=== PATIENT | female | born 1990 | race Caucasian/White ===

== ENCOUNTER 2017-11-19 03:04 | Emergency (ER) | payer OTHER ==
[~2017-11-19] VITALS: Ht 160 cm; Wt 117.9 kg
[2017-11-19] MEDS ORDERED: Vistaril25 MG PO (03:34)
[2017-11-19] MEDS ORDERED: PRED20 PO (18:56)
[2017-11-19] MEDS ORDERED: Pepcid20 MG PO (18:56)
== END 2017-11-19 03:48 | disposition home or self-care (01) ==
LOC: ER 03:04
DX: L23.9 Allergic contact dermatitis, unspecified cause (principal)
CPT/HCPCS: 99283

== ENCOUNTER 2017-11-19 17:44 | Emergency (ER) | payer OTHER ==
[~2017-11-19] VITALS: Ht 160 cm; Wt 117.9 kg
[~2017-11-19 17:44] MED LIST: Vistaril25 MG PO
[2017-11-19] MEDS ORDERED: PRED20 PO (18:56)
[2017-11-19] MEDS ORDERED: Pepcid20 MG PO (18:56)
== END 2017-11-19 19:06 | disposition home or self-care (01) ==
LOC: ER 17:44
DX: L50.9 Urticaria, unspecified (principal)
CPT/HCPCS: 99283

== ENCOUNTER → 2019-07-25 | Outpatient (CLI) | payer OTHER ==
[~2019-07-25] MED LIST changes: +PRED20 PO; +Pepcid20 MG PO
[2019-07-27 15:10] LABS: HPV 16 Negative (Negative); HPV 18 Negative (Negative); HPV OTHER HR TYPES Negative (Negative)
== END ==
LOC: LAB 18:18 → LAB SHORT 18:18
PROVIDERS: Physician Assistant
DX: Z01.419 Encounter for gynecological examination (general) (routine) without abnormal findings (principal)
CPT/HCPCS: 87624; G0145

== ENCOUNTER 2020-12-03 01:13 | Emergency (ER) | payer OTHER ==
[~2020-12-03] VITALS: Ht 160 cm; Wt 120.2 kg
[2020-12-03] MEDS ORDERED: ENSKYCE 28 TAB1 EACH (02:02)
== END 2020-12-03 06:23 | disposition home or self-care (01) ==
LOC: ER 01:13
DX: R51.9 Headache, unspecified (principal); R11.2 Nausea with vomiting, unspecified; Z79.899 Other long term (current) drug therapy
CPT/HCPCS: 81025; 96372; 99283-25; J1790; J1885

== ENCOUNTER 2021-09-04 12:50 | Emergency (ER) | payer OTHER ==
[~2021-09-04] VITALS: Ht 157.5 cm; Wt 115.7 kg
[~2021-09-04 12:50] MED LIST changes: +ENSKYCE 28 TAB1 EACH
== END 2021-09-04 13:51 | disposition home or self-care (01) ==
LOC: ER 12:50
DX: S50.311A Abrasion of right elbow, initial encounter (principal); V19.9XXA Pedal cyclist (driver) (passenger) injured in unspecified traffic accident, initial encounter; Z79.899 Other long term (current) drug therapy
CPT/HCPCS: 73090; 99283-25

== ENCOUNTER 2024-06-24 14:10 | Emergency (ER) | payer OTHER ==
[~2024-06-24] VITALS: Ht 160 cm; Wt 116.6 kg
[2024-06-24 14:47] VITALS: BP 148/94
[2024-06-24 16:13] LABS: BASOPHILS ABSOLUTE AUTO 0.02 K/mm3 (0.00-0.23); BASOPHILS PERCENT AUTO 0 % (0-2); EOSINOPHILS ABSOLUTE AUTO 0.07 K/mm3 (0.00-0.68); EOSINOPHILS PERCENT AUTO 1 % (0-6); Hematocrit 34.1 % (33.0-51.0); Hemoglobin 10.9 g/dL (11.5-16.0); IMMATURE GRAN ABSOLUTE AUTO 0.08 K/mm3 (0.00-0.10); IMMATURE GRAN PERCENT AUTO 1 % (0-1); LYMPHOCYTES ABSOLUTE AUTO 1.78 K/mm3 (0.84-5.20); LYMPHOCYTES PERCENT AUTO 15 % (21-46); MONOCYTES ABSOLUTE AUTO 0.65 K/mm3 (0.16-1.47); MONOCYTES PERCENT AUTO 6 % (4-13); Mean Corpuscular HGB 25.5 pg (26.0-34.0); Mean Corpuscular Volume 80 fL (80-100); NEUTROPHILS ABSOLUTE AUTO 9.15 K/mm3 (1.96-9.15); NEUTROPHILS PERCENT AUTO 78 % (41-73); Platelet Count 205 K/mm3 (150-400); RDW Coefficient Variation 15.2 % (11.7-14.2); RDW Standard Deviation 43.8 fL (35.1-46.3); Red Blood Cell Count 4.28 M/mm3 (3.80-5.20); White Blood Cell Count 11.75 K/mm3 (4.00-11.30)
[2024-06-24 16:30] LABS: Source, Urine Clean Catch
[2024-06-24 16:34] LABS: Albumin, Blood 2.9 g/dL (3.4-5.0); Albumin/Globulin Ratio 0.7 (0.8-1.8); Bilirubin, Total 0.4 mg/dL (0.1-1.0); Bun/Creatinine Ratio 22.1 (12.0-20.0); Calcium, Blood 8.8 mg/dL (8.5-10.1); Creatinine, Blood 0.41 mg/dL (0.40-1.00); Globulin, Blood 4.3 g/dL (2.2-4.0); Total Protein, Blood 7.2 g/dL (6.4-8.2)
[2024-06-24 16:38] LABS: Appearance, Urine Clear (Clear); Bilirubin, Urine Neg (Neg); Blood, Urine Neg (Neg); Color, Urine Yellow (P-Yellow); Glucose Qualitative, Urine Neg (Neg); Ketones, Urine Neg (Neg); Leukocyte Esterase, Urine Neg (Neg); Nitrite, Urine Neg (Neg); Protein, Urine Neg (Neg); Urobilinogen, Urine NORM (Normal)
== END 2024-06-24 17:23 | disposition home or self-care (01) ==
LOC: ER 14:10
PROVIDERS: Student in an Organized Health Care Education/Training Program
DX: O20.9 Hemorrhage in early pregnancy, unspecified (principal); O99.891 Other specified diseases and conditions complicating pregnancy; D25.9 Leiomyoma of uterus, unspecified; Z3A.09 9 weeks gestation of pregnancy
CPT/HCPCS: 76801; 80053; 81003; 84702; 85025; 86900; 86901; 99284-25

== ENCOUNTER 2024-07-06 11:24 | Emergency (ER) | payer OTHER ==
[~2024-07-06] VITALS: Ht 160 cm; Wt 114.8 kg
[2024-07-06 11:33] VITALS: BP 138/102
[2024-07-06 14:11] LABS: BASOPHILS ABSOLUTE AUTO 0.03 K/mm3 (0.00-0.23); BASOPHILS PERCENT AUTO 0 % (0-2); EOSINOPHILS ABSOLUTE AUTO 0.04 K/mm3 (0.00-0.68); EOSINOPHILS PERCENT AUTO 0 % (0-6); Hematocrit 33.9 % (33.0-51.0); IMMATURE GRAN ABSOLUTE AUTO 0.04 K/mm3 (0.00-0.10); IMMATURE GRAN PERCENT AUTO 0 % (0-1); LYMPHOCYTES ABSOLUTE AUTO 1.29 K/mm3 (0.84-5.20); LYMPHOCYTES PERCENT AUTO 14 % (21-46); MONOCYTES ABSOLUTE AUTO 0.38 K/mm3 (0.16-1.47); MONOCYTES PERCENT AUTO 4 % (4-13); Mean Corpuscular HGB 25.2 pg (26.0-34.0); Mean Corpuscular HGB Conc 32.4 g/dL (31.5-36.5); Mean Corpuscular Volume 78 fL (80-100); Mean Platelet Volume 10.4 fL (9.1-12.4); NEUTROPHILS ABSOLUTE AUTO 7.67 K/mm3 (1.96-9.15); NEUTROPHILS PERCENT AUTO 81 % (41-73); Platelet Count 191 K/mm3 (150-400); RDW Standard Deviation 41.4 fL (35.1-46.3); Red Blood Cell Count 4.37 M/mm3 (3.80-5.20); White Blood Cell Count 9.45 K/mm3 (4.00-11.30)
[2024-07-06 14:56] LABS: Albumin, Blood 2.8 g/dL (3.4-5.0); Albumin/Globulin Ratio 0.6 (0.8-1.8); Bilirubin, Total 0.3 mg/dL (0.1-1.0); Bun/Creatinine Ratio 14.9 (12.0-20.0); Calcium, Blood 9.1 mg/dL (8.5-10.1); Creatinine, Blood 0.4 mg/dL (0.40-1.00); Globulin, Blood 4.8 g/dL (2.2-4.0); Potassium, Blood 3.6 mmol/L (3.5-5.5); Total Protein, Blood 7.6 g/dL (6.4-8.2)
== END 2024-07-06 15:36 | disposition home or self-care (01) ==
LOC: ER 11:24
PROVIDERS: Student in an Organized Health Care Education/Training Program
DX: O20.0 Threatened abortion (principal); Z3A.11 11 weeks gestation of pregnancy
CPT/HCPCS: 76801; 76817; 80053; 84702; 85025; 86900; 86901; 99284-25

== ENCOUNTER → 2024-07-20 | Outpatient (CLI) | payer OTHER ==
[2024-07-20 19:52] LABS: Bacterial Vaginosis PCR Negative (NEGATIVE); Candida Group, PCR NOT DETECTED (NOT DETECT); Candida glabrata-krusei, PCR NOT DETECTED (NOT DETECT)
[2024-07-27 09:13] LABS: HPV HIGH RISK BY TMA Not Detected; HPV SOURCE Cervical
== END ==
LOC: LAB SHORT 15:55 → LAB 15:55
PROVIDERS: Advanced Practice Midwife
DX: O09.899 Supervision of other high risk pregnancies, unspecified trimester (principal); O23.599 Infection of other part of genital tract in pregnancy, unspecified trimester
CPT/HCPCS: 36415; 81515; 87624; G0123

== ENCOUNTER 2024-10-31 17:54 | Observation (INO) | payer OTHER ==
[~2024-10-31] VITALS: Ht 160 cm; Wt 115.6 kg
[2024-10-31 18:07] VITALS: BP 131/79
[2024-10-31] MEDS ORDERED: Betamethasone Sod Phos/Acetate 6 MG/ML 5ML VIAL IM ONE (18:35)
[2024-10-31 18:53] VITALS: BP 130/79
[2024-10-31 19:05] LABS: BASOPHILS ABSOLUTE AUTO 0.02 K/mm3 (0.00-0.23); BASOPHILS PERCENT AUTO 0 % (0-2); EOSINOPHILS ABSOLUTE AUTO 0.03 K/mm3 (0.00-0.68); EOSINOPHILS PERCENT AUTO 0 % (0-6); Hemoglobin 11.2 g/dL (11.5-16.0); IMMATURE GRAN ABSOLUTE AUTO 0.19 K/mm3 (0.00-0.10); IMMATURE GRAN PERCENT AUTO 2 % (0-1); LYMPHOCYTES ABSOLUTE AUTO 0.86 K/mm3 (0.84-5.20); LYMPHOCYTES PERCENT AUTO 7 % (21-46); MONOCYTES ABSOLUTE AUTO 0.57 K/mm3 (0.16-1.47); MONOCYTES PERCENT AUTO 5 % (4-13); Mean Corpuscular HGB 26.4 pg (26.0-34.0); Mean Corpuscular HGB Conc 32.9 g/dL (31.5-36.5); Mean Corpuscular Volume 80 fL (80-100); Mean Platelet Volume 11.9 fL (9.1-12.4); NEUTROPHILS ABSOLUTE AUTO 10.14 K/mm3 (1.96-9.15); NEUTROPHILS PERCENT AUTO 86 % (41-73); RDW Coefficient Variation 16.1 % (11.7-14.2); RDW Standard Deviation 45.9 fL (35.1-46.3); Red Blood Cell Count 4.25 M/mm3 (3.80-5.20); White Blood Cell Count 11.81 K/mm3 (4.00-11.30)
[2024-10-31 19:09] VITALS: BP 134/81
[2024-10-31 19:24] LABS: International Normalized Ratio 0.94; Prothrombin Time Results 10.4 Sec (9.7-11.5)
[2024-10-31] MEDS ORDERED: PRENATAL TABLE1 EAC2 PO (19:28)
[2024-10-31] MEDS ORDERED: ASPI81CH PO (19:29)
[2024-10-31 19:33] LABS: Platelet Count 37 K/mm3 (150-400)
[2024-10-31 19:53] VITALS: BP 145/79
[2024-10-31 20:10] VITALS: BP 142/78
[2024-10-31 20:16] LABS: Creatinine, Urine Random 32.1 mg/dL (27.00-270.00); Protein, Urine Random 8.9 mg/dL (0.0-11.9); Protein/Creat Ratio, Ur Random 0.3
[2024-10-31 20:24] VITALS: BP 138/83
== END 2024-11-01 01:54 | disposition home or self-care (01) ==
LOC: OBS 17:54 → BC 17:55 → OBS 18:52 → BC 18:52
PROVIDERS: Family Medicine; ADMIT Obstetrics & Gynecology
DX: O99.113 Other diseases of the blood and blood-forming organs and certain disorders involving the immune mechanism complicating pregnancy, third trimester (principal); D69.6 Thrombocytopenia, unspecified; D25.9 Leiomyoma of uterus, unspecified; O99.213 Obesity complicating pregnancy, third trimester; Z3A.28 28 weeks gestation of pregnancy; Z79.82 Long term (current) use of aspirin; O34.13 Maternal care for benign tumor of corpus uteri, third trimester; R03.0 Elevated blood-pressure reading, without diagnosis of hypertension; R04.0 Epistaxis
CPT/HCPCS: 59025; 80053; 82570; 83615; 84156; 85025; 85384; 85610; 85730; 96372; 99214; J0702

== ENCOUNTER 2024-12-16 16:21 | Inpatient (IN) | payer OTHER ==
[~2024-12-16] VITALS: Ht 160 cm; Wt 115.9 kg
[2024-12-16] VITALS (25 sets, daily range): BP systolic 102–158; BP diastolic 55–102
[~2024-12-16 16:21] MED LIST changes: +ASPI81CH PO; +PRENATAL TABLE1 EAC2 PO
[2024-12-16 18:16] LABS: BASOPHILS ABSOLUTE AUTO 0.03 K/mm3 (0.00-0.23); BASOPHILS PERCENT AUTO 0 % (0-2); EOSINOPHILS ABSOLUTE AUTO 0.08 K/mm3 (0.00-0.68); EOSINOPHILS PERCENT AUTO 1 % (0-6); Hematocrit 30.7 % (33.0-51.0); Hemoglobin 10.1 g/dL (11.5-16.0); IMMATURE GRAN ABSOLUTE AUTO 0.21 K/mm3 (0.00-0.10); IMMATURE GRAN PERCENT AUTO 2 % (0-1); LYMPHOCYTES ABSOLUTE AUTO 1.55 K/mm3 (0.84-5.20); LYMPHOCYTES PERCENT AUTO 11 % (21-46); MONOCYTES ABSOLUTE AUTO 0.61 K/mm3 (0.16-1.47); MONOCYTES PERCENT AUTO 4 % (4-13); Mean Corpuscular HGB Conc 32.9 g/dL (31.5-36.5); Mean Corpuscular Volume 82 fL (80-100); NEUTROPHILS ABSOLUTE AUTO 11.37 K/mm3 (1.96-9.15); NEUTROPHILS PERCENT AUTO 82 % (41-73); NRBC ABSOLUTE 0.00 K/mm3 (0.00-0.02); NRBC Auto 0.0 /100 WBC (0.0-0.2); Platelet Count 152 K/mm3 (150-400); RDW Coefficient Variation 16.9 % (11.7-14.2); RDW Standard Deviation 50.0 fL (35.1-46.3)
[2024-12-16 18:32] LABS: Alanine Aminotransfer (ALT/SGP 23.0 U/L (12-78); Albumin, Blood 2.0 g/dL (3.4-5.0); Albumin/Globulin Ratio 0.4 (0.8-1.8); Anion Gap 9.0 mmol/L (3-11); Aspartate Aminotrans (AST/SGOT 16.0 U/L (12-37); Bilirubin, Total 0.2 mg/dL (0.1-1.0); Blood Urea Nitrogen 8.0 mg/dL (8-24); CO2, Blood 22.0 mmol/L (21-32); Calcium, Blood 9.1 mg/dL (8.5-10.1); Chloride, Blood 109.0 mmol/L (98-108); Creatinine, Blood 0.4 mg/dL (0.40-1.00); Globulin, Blood 4.7 g/dL (2.2-4.0); Glucose, Blood 88.0 mg/dL (70-99); Potassium, Blood 3.5 mmol/L (3.5-5.5); Sodium, Blood 136.0 mmol/L (136-145); Total Protein, Blood 6.7 g/dL (6.4-8.2)
[2024-12-16] MEDS ORDERED: CeFAZolin Sodium 2,000 MG in NS 100 ML IV SCH (19:45)
[2024-12-16] MEDS ORDERED: FentaNYL Citrate 50 MCG/ML 2 ML Injection ONE ×2 (20:05→21:38)
[2024-12-16] MEDS ORDERED: Metoclopramide HCl 5MG / ML 2ML Vial IV ONE (20:05)
[2024-12-16] MEDS ORDERED: Metoclopramide HCl 5MG / ML 2ML Vial ONE (20:09)
[2024-12-16] MEDS ORDERED: Citric Acid/Sodium Citrate 30 ML BTL ONE (20:09)
[2024-12-16] MEDS ORDERED: Citric Acid/Sodium Citrate 30 ML BTL PO ONE (20:10)
[2024-12-16] MEDS ORDERED: NS 1,000 ML IV ONE (20:11)
[2024-12-16] MEDS ORDERED: NS 1,000 ML IV SCH (20:25)
[2024-12-16] MEDS ORDERED: Rocuronium Bromide 10 MG/ML 5ML Injection IV ONE (20:31)
[2024-12-16] MEDS ORDERED: Ondansetron HCl 2 MG / ML 2ML Vial ONE (20:31)
[2024-12-16] MEDS ORDERED: Dexamethasone Sod Phos 10 MG/ML 1ML VIAL ONE (20:31)
[2024-12-16] MEDS ORDERED: SuccINYLCHOLINE Chloride 100 MG/5 ML 5MLSYR ONE (20:31)
[2024-12-16] MEDS ORDERED: Sugammadex Sodium 200 MG/2ML SDV (100 MG/ML) ONE (20:33)
[2024-12-16] MEDS ORDERED: Tranexamic Acid 100 ML IV ONE ×2 (20:37→21:09)
[2024-12-16 21:18] LABS: PCO2 Cord - Arterial 55.0 mmHg (40-50); PCO2 Cord - Venous 50.7 mmHg (40-50); PO2 Cord - Arterial 20.0 mmHg (16-20); PO2 Cord - Venous 26.6 mmHg (28-32); pH Cord - Arterial 7.31 (7.28-7.35); pH Umbilical Cord - Venous 7.33 (7.26-7.35)
--- NOTE | 2024-12-16 21:33 | NUR ---
12/[id number] Aracelis Villa AZITHROMYCIN GIVEN BY ANESTHESIA AT 2051
[2024-12-16] MEDS ORDERED: Oxytocin 10 Unit / ML Vial ONE (21:44)
[2024-12-16] MEDS ORDERED: HYDROmorphone HCl/Pf 1MG SYR IV PRN ×2 (21:50→22:15)
[2024-12-16] MEDS ORDERED: Prochlorperazine Edisylate 10 mg Vial IV PRN (21:50)
[2024-12-16] MEDS ORDERED: Ondansetron HCl 2 MG / ML 2ML Vial IV PRN ×2 (21:50→22:10)
[2024-12-16] MEDS ORDERED: FentaNYL Citrate 50 MCG/ML 2 ML Injection IV PRN ×2 (21:50)
[2024-12-16] MEDS ORDERED: Albuterol 2.5 MG/3 ML VIAL INH PRN (21:55)
[2024-12-16] MEDS ORDERED: Magnesium Hydroxide Conc 10 ML UDC PO PRN (22:05)
[2024-12-16] MEDS ORDERED: OXYTOCIN/RINGER'S LACTATE 500 ML IV SCH ×2 (22:05→22:15)
[2024-12-16] MEDS ORDERED: Rho(D) Immune Globulin 300 MCG / SYR IM ONE (22:10)
[2024-12-16] MEDS ORDERED: Carboprost Tromethamine 250 MCG/ML 1ML Amp IM PRN (22:10)
[2024-12-16] MEDS ORDERED: HYDROmorphone 1 MG/ML 30 ML Bag IV PRN (22:40)
[2024-12-16] MEDS ORDERED: Ketorolac Tromethamine 30mg Vial IV SCH (23:00)
[2024-12-17 00:11] VITALS: BP 135/65
[2024-12-17 02:13] LABS: BASOPHILS ABSOLUTE AUTO 0.04 K/mm3 (0.00-0.23); BASOPHILS PERCENT AUTO 0 % (0-2); EOSINOPHILS ABSOLUTE AUTO 0.00 K/mm3 (0.00-0.68); EOSINOPHILS PERCENT AUTO 0 % (0-6); Hematocrit 30.8 % (33.0-51.0); Hemoglobin 10.0 g/dL (11.5-16.0); IMMATURE GRAN ABSOLUTE AUTO 0.28 K/mm3 (0.00-0.10); IMMATURE GRAN PERCENT AUTO 1 % (0-1); LYMPHOCYTES ABSOLUTE AUTO 0.75 K/mm3 (0.84-5.20); LYMPHOCYTES PERCENT AUTO 4 % (21-46); MONOCYTES ABSOLUTE AUTO 0.26 K/mm3 (0.16-1.47); MONOCYTES PERCENT AUTO 1 % (4-13); Mean Corpuscular HGB Conc 32.5 g/dL (31.5-36.5); Mean Corpuscular Volume 84 fL (80-100); NEUTROPHILS ABSOLUTE AUTO 18.27 K/mm3 (1.96-9.15); NEUTROPHILS PERCENT AUTO 93 % (41-73); NRBC ABSOLUTE 0.00 K/mm3 (0.00-0.02); NRBC Auto 0.0 /100 WBC (0.0-0.2); Platelet Count 133 K/mm3 (150-400); RDW Coefficient Variation 16.8 % (11.7-14.2); RDW Standard Deviation 51.1 fL (35.1-46.3)
[2024-12-17 02:34] LABS: Fibrinogen 695.0 mg/dL (170-430); Prothrombin Time Results 10.7 Sec (9.7-11.5)
[2024-12-17 02:54] VITALS: BP 132/64
[2024-12-17 08:30] LABS: BASOPHILS ABSOLUTE AUTO 0.02 K/mm3 (0.00-0.23); BASOPHILS PERCENT AUTO 0 % (0-2); EOSINOPHILS ABSOLUTE AUTO 0.00 K/mm3 (0.00-0.68); EOSINOPHILS PERCENT AUTO 0 % (0-6); Hematocrit 27.3 % (33.0-51.0); Hemoglobin 9.0 g/dL (11.5-16.0); IMMATURE GRAN ABSOLUTE AUTO 0.18 K/mm3 (0.00-0.10); IMMATURE GRAN PERCENT AUTO 1 % (0-1); LYMPHOCYTES ABSOLUTE AUTO 1.15 K/mm3 (0.84-5.20); LYMPHOCYTES PERCENT AUTO 7 % (21-46); MONOCYTES ABSOLUTE AUTO 0.56 K/mm3 (0.16-1.47); MONOCYTES PERCENT AUTO 3 % (4-13); Mean Corpuscular HGB Conc 33.0 g/dL (31.5-36.5); Mean Corpuscular Volume 84 fL (80-100); NEUTROPHILS ABSOLUTE AUTO 15.87 K/mm3 (1.96-9.15); NEUTROPHILS PERCENT AUTO 89 % (41-73); NRBC ABSOLUTE 0.00 K/mm3 (0.00-0.02); NRBC Auto 0.0 /100 WBC (0.0-0.2); Platelet Count 132 K/mm3 (150-400); RDW Coefficient Variation 16.6 % (11.7-14.2); RDW Standard Deviation 50.6 fL (35.1-46.3)
[2024-12-17 08:36] VITALS: BP 132/72
[2024-12-17] MEDS ORDERED: Prenatal Vit/FE Fumarate/FA 1 Tab PO SCH (09:00)
[2024-12-17] MEDS ORDERED: Polyethylene Glycol 3350 17 gm PO SCH (09:00)
[2024-12-17 12:36] VITALS: BP 128/72
[2024-12-17 14:19] LABS: BASOPHILS ABSOLUTE AUTO 0.03 K/mm3 (0.00-0.23); BASOPHILS PERCENT AUTO 0 % (0-2); EOSINOPHILS ABSOLUTE AUTO 0.02 K/mm3 (0.00-0.68); EOSINOPHILS PERCENT AUTO 0 % (0-6); Hematocrit 26.9 % (33.0-51.0); Hemoglobin 8.8 g/dL (11.5-16.0); IMMATURE GRAN ABSOLUTE AUTO 0.20 K/mm3 (0.00-0.10); IMMATURE GRAN PERCENT AUTO 1 % (0-1); LYMPHOCYTES ABSOLUTE AUTO 1.62 K/mm3 (0.84-5.20); LYMPHOCYTES PERCENT AUTO 9 % (21-46); MONOCYTES ABSOLUTE AUTO 0.91 K/mm3 (0.16-1.47); MONOCYTES PERCENT AUTO 5 % (4-13); Mean Corpuscular HGB Conc 32.7 g/dL (31.5-36.5); Mean Corpuscular Volume 84 fL (80-100); NEUTROPHILS ABSOLUTE AUTO 14.95 K/mm3 (1.96-9.15); NEUTROPHILS PERCENT AUTO 84 % (41-73); NRBC ABSOLUTE 0.00 K/mm3 (0.00-0.02); NRBC Auto 0.0 /100 WBC (0.0-0.2); Platelet Count 135 K/mm3 (150-400); RDW Coefficient Variation 16.8 % (11.7-14.2); RDW Standard Deviation 51.7 fL (35.1-46.3)
[2024-12-17 17:36] VITALS: BP 140/81
[2024-12-17 19:42] VITALS: BP 141/71
[2024-12-17] MEDS ORDERED: Ketorolac Tromethamine 30mg Vial IV PRN (20:05)
[2024-12-17 20:32] LABS: BASOPHILS ABSOLUTE AUTO 0.03 K/mm3 (0.00-0.23); BASOPHILS PERCENT AUTO 0 % (0-2); EOSINOPHILS ABSOLUTE AUTO 0.04 K/mm3 (0.00-0.68); EOSINOPHILS PERCENT AUTO 0 % (0-6); Hematocrit 25.9 % (33.0-51.0); Hemoglobin 8.7 g/dL (11.5-16.0); IMMATURE GRAN ABSOLUTE AUTO 0.31 K/mm3 (0.00-0.10); IMMATURE GRAN PERCENT AUTO 2 % (0-1); LYMPHOCYTES ABSOLUTE AUTO 1.90 K/mm3 (0.84-5.20); LYMPHOCYTES PERCENT AUTO 12 % (21-46); MONOCYTES ABSOLUTE AUTO 0.89 K/mm3 (0.16-1.47); MONOCYTES PERCENT AUTO 6 % (4-13); Mean Corpuscular HGB Conc 33.6 g/dL (31.5-36.5); Mean Corpuscular Volume 84 fL (80-100); NEUTROPHILS ABSOLUTE AUTO 12.69 K/mm3 (1.96-9.15); NEUTROPHILS PERCENT AUTO 80 % (41-73); NRBC ABSOLUTE 0.00 K/mm3 (0.00-0.02); NRBC Auto 0.0 /100 WBC (0.0-0.2); Platelet Count 131 K/mm3 (150-400); RDW Coefficient Variation 17.1 % (11.7-14.2); RDW Standard Deviation 51.8 fL (35.1-46.3)
[2024-12-18 00:16] VITALS: BP 115/59
[2024-12-18 04:14] VITALS: BP 127/63
[2024-12-18 07:48] VITALS: BP 132/68
[2024-12-18 11:41] LABS: BASOPHILS ABSOLUTE AUTO 0.02 K/mm3 (0.00-0.23); BASOPHILS PERCENT AUTO 0 % (0-2); EOSINOPHILS ABSOLUTE AUTO 0.06 K/mm3 (0.00-0.68); EOSINOPHILS PERCENT AUTO 1 % (0-6); Hematocrit 25.6 % (33.0-51.0); Hemoglobin 8.3 g/dL (11.5-16.0); IMMATURE GRAN ABSOLUTE AUTO 0.24 K/mm3 (0.00-0.10); IMMATURE GRAN PERCENT AUTO 2 % (0-1); LYMPHOCYTES ABSOLUTE AUTO 1.39 K/mm3 (0.84-5.20); LYMPHOCYTES PERCENT AUTO 11 % (21-46); MONOCYTES ABSOLUTE AUTO 0.81 K/mm3 (0.16-1.47); MONOCYTES PERCENT AUTO 6 % (4-13); Mean Corpuscular HGB Conc 32.4 g/dL (31.5-36.5); Mean Corpuscular Volume 85 fL (80-100); NEUTROPHILS ABSOLUTE AUTO 10.38 K/mm3 (1.96-9.15); NEUTROPHILS PERCENT AUTO 80 % (41-73); NRBC ABSOLUTE 0.00 K/mm3 (0.00-0.02); NRBC Auto 0.0 /100 WBC (0.0-0.2); Platelet Count 132 K/mm3 (150-400); RDW Coefficient Variation 17.0 % (11.7-14.2); RDW Standard Deviation 53.1 fL (35.1-46.3)
[2024-12-18 13:46] VITALS: BP 143/85
--- NOTE | 2024-12-19 09:37 | NUR ---
PHONE CALL TO PT FOR PP FOLLOW UP. PT REPORTS SHE IS DOING WELL. ASYMPTOMATIC BESIDES SOME PAIN AT INCISION SITE. SHE REPORTS THAT THE PAIN MEDS HELP WITH THAT WHEN SHE TAKES THEM. BLEEDING WNL. APPT SCHEDULED WITH NILER IN 2 WEEKS. PT SEEMED IN GOOD SPIRITS. NB DOING WELL BUT STILL ADMITTED TO [facility]. NO FURTHER QUESTIONS OR CONCERNS.
== END 2024-12-18 13:55 | disposition home or self-care (01) | DRG 787 ==
LOC: OBS 16:21 → BC 16:21 → OBS 19:36 → BC 19:37
PROVIDERS: Obstetrics & Gynecology; ADMIT Obstetrics & Gynecology
PROC: 30233N1 Transfusion of Nonautologous Red Blood Cells into Peripheral Vein, Percutaneous Approach (ICD-10-PCS; 2024-12-16)
PROC: 10D00Z1 Extraction of Products of Conception, Low, Open Approach (ICD-10-PCS; principal; 2024-12-16 12:15)
DX: O34.13 Maternal care for benign tumor of corpus uteri, third trimester (principal); D62 Acute posthemorrhagic anemia; D69.3 Immune thrombocytopenic purpura; O99.12 Other diseases of the blood and blood-forming organs and certain disorders involving the immune mechanism complicating childbirth; D25.9 Leiomyoma of uterus, unspecified; O13.4 Gestational [pregnancy-induced] hypertension without significant proteinuria, complicating childbirth; O99.214 Obesity complicating childbirth; D50.9 Iron deficiency anemia, unspecified; O36.8330 Maternal care for abnormalities of the fetal heart rate or rhythm, third trimester, not applicable or unspecified; Z98.818 Other dental procedure status; Z79.82 Long term (current) use of aspirin; Z79.899 Other long term (current) drug therapy; Z3A.34 34 weeks gestation of pregnancy; Z37.0 Single live birth
CPT/HCPCS: 36415; 36430; 59025; 76819; 80053; 81003; 82803; 85025; 85384; 85610; 85730; 86850; 86900; 86901; 86923; 99214; A9270; J0330; J0456; J0690; J1100; J1171; J1885; J2405; J2590; J2704; J2765; J3010; J7030; J7050; J7120; P9016

== ENCOUNTER → 2025-01-24 | Outpatient (CLI) | payer OTHER | END | disposition home or self-care (01) | LOC: LAB 16:05 → LAB SHORT 16:05 | PROVIDERS: Obstetrics & Gynecology | DX: Z01.419 Encounter for gynecological examination (general) (routine) without abnormal findings (principal) | CPT/HCPCS: 87624; G0123 ==

== ENCOUNTER 2025-03-20 11:21 | Day surgery (SDC) | payer OTHER ==
[2025-03-20] VITALS (13 sets, daily range): BP systolic 139–157; BP diastolic 76–86
[~2025-03-20] VITALS: Ht 160 cm; Wt 118.9 kg
[~2025-03-20 11:21] MED LIST changes: +FERSU300 PO; +FentaNYL Citrate 50 MCG/ML 2 ML Injection ONE; +IBUP800 PO; +OXYC5 PO; +Rocuronium Bromide 10 MG/ML 5ML Injection IV ONE
[2025-03-20] MEDS ORDERED: HYDROmorphone HCl/Pf 1MG SYR IV PRN (11:50)
[2025-03-20] MEDS ORDERED: Metoclopramide HCl 5MG / ML 2ML Vial IV PRN (11:50)
[2025-03-20] MEDS ORDERED: FentaNYL Citrate 50 MCG/ML 2 ML Injection IV PRN ×3 (11:50→17:15)
[2025-03-20] MEDS ORDERED: Prochlorperazine Edisylate 10 mg Vial IV PRN (11:55)
[2025-03-20] MEDS ORDERED: Albuterol 2.5 MG/3 ML VIAL INH PRN (11:55)
[2025-03-20] MEDS ORDERED: Ondansetron HCl 2 MG / ML 2ML Vial IV PRN ×2 (11:55→17:10)
[2025-03-20] MEDS ORDERED: CeFAZolin Sodium 2,000 MG in NS 100 ML IV SCH (12:15)
[2025-03-20] MEDS ORDERED: Bupivacaine 0.5% W/EPI 1:200000 SDV 30 ML Vial ONE (12:20)
--- NOTE | 2025-03-20 12:29 | NUR ---
Ambulatory in Day Surgery. History, Chart, Medications and Allergies reviewed before start of procedure. Patient confirms NPO status and agrees with scheduled surgery. Pre-Op teaching done. Pt verbalizes understanding. Patient States Post-Procedure ride home has been arranged. Pt belongings placed underneath [facility] for safekeeping. Pt contact lenses removed and taken to PACU for safekeeping.
[2025-03-20] MEDS ORDERED: Dexamethasone Sod Phos 10 MG/ML 1ML VIAL ONE (12:42)
[2025-03-20] MEDS ORDERED: Ondansetron HCl 2 MG / ML 2ML Vial ONE (12:42)
[2025-03-20] MEDS ORDERED: Sugammadex Sodium 200 MG/2ML SDV (100 MG/ML) ONE (12:43)
[2025-03-20] MEDS ORDERED: Ketorolac Tromethamine 30mg Vial ONE (12:44)
[2025-03-20] MEDS ORDERED: Rocuronium Bromide 10 MG/ML 5ML Injection IV ONE ×2 (12:52→14:30)
[2025-03-20] MEDS ORDERED: Midazolam HCl 1MG / ML 2ML Vial IV ONE (13:00)
[2025-03-20] MEDS ORDERED: FentaNYL Citrate 50 MCG/ML 2 ML Injection ONE (13:01)
--- NOTE | 2025-03-20 13:22 | NUR ---
03/20/25 1322 Anamika Josue UPON PREPPING PATIENT PRIOR TO START OF SURGERY RN AND MANAGER FAMILY NOTED PREVIOUS SCAR WAS REDDENED AND A SMALL PORTION OF THE LEFT SIDE OF THE SCAR, APPROXIMATELY 1/2", IS OPEN AND MOIST. WAS MADE AWARE AND PROCEDURE PROCEEEDED PLANNED.
[2025-03-20] MEDS ORDERED: Labetalol HCL 5 MG/ML 4ML Injection (Single Dose) ONE (13:55)
[2025-03-20] MEDS ORDERED: CeFAZolin Sodium 2,000 MG in NS 100 ML IV ONE (16:40)
[2025-03-20] MEDS ORDERED: HYDROmorphone HCl/Pf 1MG SYR ONE (17:02)
[2025-03-20] MEDS ORDERED: FLU VACC TS2025-26(6MOS UP)/PF 45 MCG/0.5 ML SYRINGE IM SCH (17:15)
--- NOTE | 2025-03-20 17:39 | NUR ---
ARRIVAL TO UNIT PT ARRIVED TO UNIT AT APPROX 1730. BP SLIGHTLY ELAVTED W/ SYSTOLIC IN THE 150'S. PT ON 3L NC SATTING ABOVE 95%. CONT. PULSE OX IN PLACE TO MONITOR PT 02 SATURATION. PT DENIES N/V. K-PAD PROVIDED FOR COMFORT.4 LAP SITES C/D/I. SITE IS SLIGHTLY RED. PERSONAL BELONGINGS IN ROOM, CALL LIGHT IN REACH. BA ON FOR PT SAFETY DUE TO DROWSNINESS FROM PROCEDURE.
[2025-03-20] MEDS ORDERED: Ketorolac Tromethamine 30mg Vial IV SCH (18:00)
[2025-03-21 04:02] VITALS: BP 127/70
--- NOTE | 2025-03-21 04:20 | NUR ---
SHIFT SUMMARY IRAM WAS ALERT AND FULLY ORIENTED ON ASSESSMENT. PT DENIES SOB, NAUSEA, CHEST PAIN. PT PAIN WELL MANAGED THIS SHIFT. LAP SITES AND OLD CS INSCISION C/D/I. HORACIO-PADS FREE OF BLOOD/ DISCHARGE. AMBULATING/ VOIDING APPROPRIATLY, MINOR BLOOD NOTED TO URINE. NO ACUTE EVENTS THIS SHIFT.
[2025-03-21 07:23] VITALS: BP 115/63
[2025-03-21] MEDS ORDERED: ACET500 PO (08:13)
[2025-03-21] MEDS ORDERED: SIME80CH PO (08:14)
--- NOTE | 2025-03-21 09:25 | NUR ---
DISCHARGE NOTE PT IS ALERT AND ORIENTATED X 4. SHE IS TOLERATING PO INTAKE AND VOIDING WELL. DENIES N/V. PAIN MANAGED PER EMAR. SURGICAL SITES ARE C/D/I. PT VERABLIZED UNDERSTANDING OF DC EDUCATION. IV REMOVED. PT APPEARS EXCITED TO GO HOME. ALL PERSONAL BELONGINGS W/ PT, ESCORTED OUT VIA WC.
== END 2025-03-21 09:30 | disposition home or self-care (01) ==
LOC: SURS 11:21 → ORSCMMR 11:21 → ORD 12:30 → SURS 17:24 → ORSCMMR 03-21 09:30
PROVIDERS: Obstetrics & Gynecology
PROC: 0UT74ZZ Resection of Bilateral Fallopian Tubes, Percutaneous Endoscopic Approach (ICD-10-PCS; principal; 2025-03-20 12:30)
PROC: 0UT94ZZ Resection of Uterus, Percutaneous Endoscopic Approach (ICD-10-PCS; principal; 2025-03-20 12:30)
DX: D25.1 Intramural leiomyoma of uterus (principal); E66.01 Morbid (severe) obesity due to excess calories; Z68.42 Body mass index [BMI] 45.0-49.9, adult
CPT/HCPCS: 86850; 86900; 86901; 88307; A9270; J0690; J1100; J1171; J1885; J2250; J2405; J2704; J3010; J7120